=== PATIENT | male | born 1990 | race Two or more races ===

== ENCOUNTER 2020-08-09 10:13 | Emergency (ER) | payer SELFPAY | END 2020-08-09 10:23 | disposition left against medical advice (07) | LOC: ER 10:13 | DX: Z53.21 Procedure and treatment not carried out due to patient leaving prior to being seen by health care provider (principal) | CPT/HCPCS: 99281 ==

== ENCOUNTER 2020-11-11 07:33 | Emergency (ER) | payer BC ==
[~2020-11-11] VITALS: Ht 177.8 cm; Wt 118.8 kg
[2020-11-11] MEDS ORDERED: OMEP20ER PO (08:01)
[2020-11-11] MEDS ORDERED: BUSPIRONE HCL7.5 M2 PO (08:01)
[2020-11-11] MEDS ORDERED: METFORMIN HCL500 M3 PO (08:01)
[2020-11-11] MEDS ORDERED: GLIP5 PO (08:02)
[2020-11-11] MEDS ORDERED: LISI5 PO (08:02)
[2020-11-11] MEDS ORDERED: ZOFRAN4 MG PO (08:03)
[2020-11-11] MEDS ORDERED: ZOLOFT50 MG PO (08:03)
[2020-11-11 08:05] LABS: BASOPHILS ABSOLUTE AUTO 0.03 K/mm3 (0.00-0.23); BASOPHILS PERCENT AUTO 0 % (0-2); EOSINOPHILS ABSOLUTE AUTO 0.13 K/mm3 (0.00-0.68); EOSINOPHILS PERCENT AUTO 1 % (0-6); Hematocrit 43.3 % (37.0-53.0); Hemoglobin 14.1 g/dL (13.5-17.5); IMMATURE GRAN ABSOLUTE AUTO 0.03 K/mm3 (0.00-0.10); IMMATURE GRAN PERCENT AUTO 0 % (0-1); LYMPHOCYTES ABSOLUTE AUTO 2.03 K/mm3 (0.84-5.20); LYMPHOCYTES PERCENT AUTO 21 % (21-46); MONOCYTES ABSOLUTE AUTO 0.53 K/mm3 (0.16-1.47); MONOCYTES PERCENT AUTO 5 % (4-13); Mean Corpuscular HGB 28.3 pg (26.0-34.0); Mean Corpuscular HGB Conc 32.6 g/dL (31.5-36.5); Mean Corpuscular Volume 87 fL (80-100); Mean Platelet Volume 10.2 fL (9.1-12.4); NEUTROPHILS PERCENT AUTO 72 % (41-73); Platelet Count 296 K/mm3 (150-400); RDW Coefficient Variation 13.2 % (11.7-14.2); RDW Standard Deviation 42.1 fL (35.1-46.3); Red Blood Cell Count 4.98 M/mm3 (4.30-5.90); White Blood Cell Count 9.75 K/mm3 (4.00-11.30)
[2020-11-11 08:16] LABS: Alanine Aminotransfer (ALT/SGP 30 U/L (12-78); Albumin, Blood 3.6 g/dL (3.4-5.0); Albumin/Globulin Ratio 0.9 (0.8-1.8); Alk Phos 47 U/L (50-136); Anion Gap 4 mmol/L (6-16); Aspartate Aminotrans (AST/SGOT 15 U/L (12-37); Bilirubin, Total 0.1 mg/dL (0.1-1.0); Blood Urea Nitrogen 13 mg/dL (8-24); Bun/Creatinine Ratio 15.2 (12.0-20.0); CO2, Blood 27 mmol/L (21-32); Calcium, Blood 8.4 mg/dL (8.5-10.1); Chloride, Blood 105 mmol/L (98-108); Creatinine, Blood 0.85 mg/dL (0.60-1.20); Globulin, Blood 3.9 g/dL (2.2-4.0); Glomerular Filtration Rate >60 (60-); Glucose, Blood 157 mg/dL (70-99); Potassium, Blood 3.7 mmol/L (3.5-5.5); Sodium, Blood 136 mmol/L (136-145); Total Protein, Blood 7.5 g/dL (6.4-8.2)
[2020-11-11] MEDS ORDERED: SUCR1 PO (08:57)
[2020-11-11] MEDS ORDERED: PROM25 PO (08:57)
== END 2020-11-11 09:08 | disposition home or self-care (01) ==
LOC: ER 07:33
PROVIDERS: Emergency Medicine
DX: K27.9 Peptic ulcer, site unspecified, unspecified as acute or chronic, without hemorrhage or perforation (principal); E11.9 Type 2 diabetes mellitus without complications; Z79.84 Long term (current) use of oral hypoglycemic drugs; Z79.899 Other long term (current) drug therapy
CPT/HCPCS: 36415; 80053; 83690; 85025; 96374; 96375; 99284-25; C9113; J1170; J2405; J7120

== ENCOUNTER → 2021-01-30 | Outpatient (CLI) | payer BC ==
[~2021-01-30] MED LIST: BUSPIRONE HCL7.5 M2 PO; GLIP5 PO; LISI5 PO; METFORMIN HCL500 M3 PO; OMEP20ER PO; PROM25 PO; SUCR1 PO; ZOFRAN4 MG PO; ZOLOFT50 MG PO
== END ==
LOC: LAB SHORT 14:22 → LAB 14:22
DX: K21.9 Gastro-esophageal reflux disease without esophagitis (principal); R11.2 Nausea with vomiting, unspecified; R10.13 Epigastric pain
CPT/HCPCS: 87338

== ENCOUNTER 2022-05-20 15:58 | Inpatient (IN) | payer BC ==
[~2022-05-20] VITALS: Ht 177.8 cm; Wt 106.8 kg
[2022-05-20 16:59] LABS: BASOPHILS ABSOLUTE AUTO 0.04 K/mm3 (0.00-0.23); BASOPHILS PERCENT AUTO 0 % (0-2); EOSINOPHILS PERCENT AUTO 1 % (0-6); Hemoglobin 16.2 g/dL (13.5-17.5); IMMATURE GRAN PERCENT AUTO 1 % (0-1); LYMPHOCYTES ABSOLUTE AUTO 2.62 K/mm3 (0.84-5.20); LYMPHOCYTES PERCENT AUTO 17 % (21-46); MONOCYTES PERCENT AUTO 6 % (4-13); Mean Corpuscular HGB 27.9 pg (26.0-34.0); Mean Corpuscular HGB Conc 34.5 g/dL (31.5-36.5); Mean Corpuscular Volume 81 fL (80-100); Mean Platelet Volume 10.9 fL (9.1-12.4); NEUTROPHILS ABSOLUTE AUTO 11.84 K/mm3 (1.96-9.15); NEUTROPHILS PERCENT AUTO 75 % (41-73); Platelet Count 374 K/mm3 (150-400); RDW Coefficient Variation 12.2 % (11.7-14.2); RDW Standard Deviation 36.1 fL (35.1-46.3)
[2022-05-20 17:32] LABS: Albumin, Blood 3.7 g/dL (3.4-5.0); Albumin/Globulin Ratio 0.8 (0.8-1.8); Bilirubin, Total 0.5 mg/dL (0.1-1.0); Bun/Creatinine Ratio 19.3 (12.0-20.0); Creatinine, Blood 0.62 mg/dL (0.60-1.20); Globulin, Blood 4.9 g/dL (2.2-4.0); Total Protein, Blood 8.6 g/dL (6.4-8.2)
[2022-05-20] MEDS ORDERED: SERT100 PO (23:14)
--- NOTE | 2022-05-21 04:52 | NUR ---
SHIFT SUMMARY PT A&O X 4, PT ADMITTED AT BEGIN OF SHIFT- PT INDEPENDENT IN ROOM- FIANCE AT BED SIDE, IV R AC- NS @ 125ML/HR- PT HAS L BUTTOCKS ABSCESS- PT LAYS ON STOMACH- TELE MONITOR IN PLACE = SINUS AT 80S- MEDICATED WITH TRAMADOL FOR PAIN- IV ABX GIVEN T/O NIGHT
[2022-05-21 07:40] LABS: BASOPHILS ABSOLUTE AUTO 0.02 K/mm3 (0.00-0.23); BASOPHILS PERCENT AUTO 0 % (0-2); EOSINOPHILS ABSOLUTE AUTO 0.13 K/mm3 (0.00-0.68); EOSINOPHILS PERCENT AUTO 1 % (0-6); Hematocrit 40.7 % (37.0-53.0); Hemoglobin 13.7 g/dL (13.5-17.5); IMMATURE GRAN ABSOLUTE AUTO 0.07 K/mm3 (0.00-0.10); IMMATURE GRAN PERCENT AUTO 1 % (0-1); LYMPHOCYTES ABSOLUTE AUTO 1.98 K/mm3 (0.84-5.20); LYMPHOCYTES PERCENT AUTO 18 % (21-46); MONOCYTES ABSOLUTE AUTO 0.91 K/mm3 (0.16-1.47); MONOCYTES PERCENT AUTO 8 % (4-13); Mean Corpuscular HGB 28.1 pg (26.0-34.0); Mean Corpuscular HGB Conc 33.7 g/dL (31.5-36.5); Mean Corpuscular Volume 84 fL (80-100); Mean Platelet Volume 10.7 fL (9.1-12.4); NEUTROPHILS ABSOLUTE AUTO 7.92 K/mm3 (1.96-9.15); NEUTROPHILS PERCENT AUTO 72 % (41-73); Platelet Count 280 K/mm3 (150-400); RDW Coefficient Variation 12.6 % (11.7-14.2); RDW Standard Deviation 38.3 fL (35.1-46.3); Red Blood Cell Count 4.87 M/mm3 (4.30-5.90); White Blood Cell Count 11.03 K/mm3 (4.00-11.30)
[2022-05-21 07:49] LABS: Albumin, Blood 2.8 g/dL (3.4-5.0); Albumin/Globulin Ratio 0.7 (0.8-1.8); Bilirubin, Total 0.6 mg/dL (0.1-1.0); Bun/Creatinine Ratio 18.3 (12.0-20.0); Calcium, Blood 8.5 mg/dL (8.5-10.1); Creatinine, Blood 0.55 mg/dL (0.60-1.20); Globulin, Blood 3.9 g/dL (2.2-4.0); Total Protein, Blood 6.7 g/dL (6.4-8.2)
--- NOTE | 2022-05-21 16:37 | NUR ---
SHIFT SUMMARY PT HAS HAD C/O N/P THIS SHIFT, HE WAS MEDICATED PER THE EMAR. NO WOUND CONSULT THIS SHIFT BUT IT IS ORDERED. HIS GF HAS BEEN AT THE BS ALL DAY. HE HAS BEEN RESTING ON HIS STOMACH MOST OF THE DAY BUT HAS SHIFTED FROM SIDE TO SIDE AT TIMES. HE IS AOX4 AND CALLS WELL. WILL REPORT TO ONCOMING NURSE.
--- NOTE | 2022-05-21 22:55 | NUR ---
PHONE CALL TO HOSPITIALIST - PT C/O 04/02 PAIN- PT TOOK SHOWER AND CLEANED AREA OF ABSCESS AND IS IN TEARS- SEE ORDERS
--- NOTE | 2022-05-22 04:26 | NUR ---
SHIFT SUMMMARY PT A&O X 4- PT C/O INCREASED PAIN AFTER SHOWERING AND CLEANING ABSCESS AREA- NEW ORDER FOR FENTANYL - GAVE ZOFRAN AND FENTANYL FOR NAUSEA AND PAIN- PT TOLERATED WELL- IV INFUSING NS @ 125 R AC- PLAN IS FOR WOUND CARE TO TREAT- FIANCE AT BEDSIDE
--- NOTE | 2022-05-22 17:13 | NUR ---
SHIFT SUMMARY PT IN A LOT OF PAIN THIS SHIFT, ALSO C/O NAUSEA. INITIALLY, A SHIRA WAS SCHEDULED BY DR. FOWLER BUT IT WAS DECIDED THAT DR. ALEXANDRA AND SURGERY SHOULD CONSULT THE PATIENT WELL. HE WAS SEEN AND IT WAS DECIDED TO PERFORM THE PROCEDURE IN THE OR. HE IS LEAVING FOR HIS PROCEDURE AT 1715. HE HAS BEEN NPO TODAY DUE TO HIS LACK OF APPETITE. WILL REPORT TO ONCOMING NURSE.
--- NOTE | 2022-05-23 04:14 | NUR ---
SHIFT SUMMARY PATIENT IS ALERT AND ORIENTED. PATIENT ARRIVED BACK IN HIS ROOM RIGHT AFTER SHIFT CHANGE. RECOVERY NURSE AMADEO GAVE OR REPORT TO THIS RN. PATIENT HAD IND DONE OF AFFECTED AREA. ADDITIONAL ORDERS ARE IN PLACE FOR AFFECTED AREA TREATMENT. PATIENT HAS BEEN MEDICATED FOR PAIN. THIS RN OBTAINED MEDICATION FOR SLEEP WITH GOOD EFFECT. PATIENT HAS NOT COMPLAINED OF PAIN, NAUSEA, SOB OR VOMITTING THIS SHIFT. VITAL SIGNS REVIEWED. BED IN LOCKED AND LOWEST POSITION. CALL LIGHT IN PLACE. WILL MONITOR UNTIL SHIFT CHANGE.
--- NOTE | 2022-05-23 07:20 | NUR ---
05/23/22 0720 Marita Borja VERIFICATIONS: EDIT CHART.
[2022-05-23 10:51] LABS: BASOPHILS ABSOLUTE AUTO 0.02 K/mm3 (0.00-0.23); BASOPHILS PERCENT AUTO 0 % (0-2); EOSINOPHILS ABSOLUTE AUTO 0.05 K/mm3 (0.00-0.68); EOSINOPHILS PERCENT AUTO 1 % (0-6); Hematocrit 44.9 % (37.0-53.0); Hemoglobin 14.8 g/dL (13.5-17.5); IMMATURE GRAN ABSOLUTE AUTO 0.07 K/mm3 (0.00-0.10); IMMATURE GRAN PERCENT AUTO 1 % (0-1); LYMPHOCYTES ABSOLUTE AUTO 1.47 K/mm3 (0.84-5.20); LYMPHOCYTES PERCENT AUTO 14 % (21-46); MONOCYTES ABSOLUTE AUTO 0.55 K/mm3 (0.16-1.47); MONOCYTES PERCENT AUTO 5 % (4-13); Mean Corpuscular HGB 27.9 pg (26.0-34.0); Mean Corpuscular Volume 85 fL (80-100); Mean Platelet Volume 10.3 fL (9.1-12.4); NEUTROPHILS ABSOLUTE AUTO 8.22 K/mm3 (1.96-9.15); NEUTROPHILS PERCENT AUTO 79 % (41-73); Platelet Count 410 K/mm3 (150-400); RDW Coefficient Variation 12.4 % (11.7-14.2); RDW Standard Deviation 38.1 fL (35.1-46.3); Red Blood Cell Count 5.31 M/mm3 (4.30-5.90); White Blood Cell Count 10.38 K/mm3 (4.00-11.30)
[2022-05-23 10:58] LABS: Bicarbonate Venous 19.8 mmol/L (24.0-30.0); PCO2 Venous 38.6 mmHg (38-42); pH Blood Venous 7.32 (7.34-7.37)
[2022-05-23 11:12] LABS: Bun/Creatinine Ratio 14.3 (12.0-20.0); Calcium, Blood 8.8 mg/dL (8.5-10.1); Creatinine, Blood 0.63 mg/dL (0.60-1.20); Magnesium, Blood 1.7 mg/dL (1.6-2.4)
[2022-05-23 11:23] LABS: Influenza A, PCR NEGATIVE (NEGATIVE); Influenza B, PCR NEGATIVE (NEGATIVE); Resp Syncytial Virus, PCR NEGATIVE (NEGATIVE); SARS-Cov-2 (COVID-19) PCR, MMC NEGATIVE (NEGATIVE)
--- NOTE | 2022-05-23 20:27 | NUR ---
SHIFT SUMMARY- PT ALERT AND ORIENTED, INDEPEDENT IN THE ROOM. PT WAS VERY LETHARGIC AT THE START OF SHIFT, PULSE WAS A LITTLE ELVATED AND HE WAS HAVING A HACKING NONPRODUCTIVE COUGH, O2 SATS WERE 88% ON ROOM AIR AND THE PT WAS DECLINING HIS O2 BECAUSE HE "COULDN'T BREATHE WITH IT ON" SHORTLY AFTER THAT HE ALLOWED STAFF TO PLACE THE NC ON 2L. CALLED MD PT WAS HAVING AN INCREASE IN WORK OF BREATHING EVEN WITH THE O2 IN PLACE RESP RATE WAS 26. MD PLACED ORDERS FOR LABS AND CHEST XR. PT BREATHING SLOWED THE DAY PROGRESSED HOWEVER HE REMAINED LETHARGIC AND WAS DECLINING TO EAT ANYTHING AND NOT DRINKING PO FLUIDS. MD AWARE AND ORDERED LR AT 125 AND HOLD SHORT ACTING INSULIN FOR NOW. REPEAT LACTIC WAS 1.6. THIS EVENING AFTER THE LR WAS STARTED THE PT RESP RATE WAS DOWN TO 22, HE WAS MORE AWAKE AND ALERT AND WAS WANTING TO MOVE AROUND. HE AMBULATED TO THE BATHROOM SEVERAL TIMES AND THEN WALKED A DIOMEDE AROUND THE WHOLE UNIT. PT FIANCE IS AT THE BEDSIDE. HIS COLOR AND ENERGY LEVEL HAD IMPROVED AND THE PT REQUESTED A GRILLED CHICKEN SALAD, HE ATE ALL. PT IN BED, CALL LIGHT IN REACH NO S&S OF DISTRESS NOTED AT THE TIME OF BEDSIDE REPORT.
[2022-05-23 22:31] LABS: U Amphetamine Screen Not Detected; U Barbituate Screen Not Detected; U Benzodiazapine Screen Not Detected; U Buprenorphine Screen Not Detected; U Cannabinoids Screen DETECTED; U Cocaine Screen Not Detected; U Methadone Screen Not Detected; U Methamphetamine Screen Not Detected; U Opiates Screen Not Detected; U Oxycodone Screen Not Detected; U Phencyclidine Screen Not Detected; U Propoxyphene Screen Not Detected
--- NOTE | 2022-05-24 04:21 | NUR ---
SHIFT SUMMARY: PATIENT A&O X4, VS WNL ON RA, DENIES SOB/CHEST PAIN/N/V/D. MEDICATED PER EMAR. PATIENT INDEPENDENT IN BED AND REPOSITIONS SELF. USES CALL LIGHT APPROPRIATELY. [place]MEN [place] AT BEDSIDE. NO ADVERSE EVENTS THIS SHIFT. PLAN IS FOR D/C TODAY. BED LOW WITH CALL LIGHT IN REACH. WILL CONTINUE TO MONITOR AND REPORT TO DAY RN.
[2022-05-24 05:57] LABS: BASOPHILS ABSOLUTE AUTO 0.02 K/mm3 (0.00-0.23); BASOPHILS PERCENT AUTO 0 % (0-2); EOSINOPHILS ABSOLUTE AUTO 0.11 K/mm3 (0.00-0.68); EOSINOPHILS PERCENT AUTO 2 % (0-6); Hematocrit 38.5 % (37.0-53.0); Hemoglobin 12.8 g/dL (13.5-17.5); IMMATURE GRAN ABSOLUTE AUTO 0.04 K/mm3 (0.00-0.10); IMMATURE GRAN PERCENT AUTO 1 % (0-1); LYMPHOCYTES ABSOLUTE AUTO 2.09 K/mm3 (0.84-5.20); LYMPHOCYTES PERCENT AUTO 30 % (21-46); MONOCYTES ABSOLUTE AUTO 0.56 K/mm3 (0.16-1.47); MONOCYTES PERCENT AUTO 8 % (4-13); Mean Corpuscular HGB 28.2 pg (26.0-34.0); Mean Corpuscular HGB Conc 33.2 g/dL (31.5-36.5); Mean Corpuscular Volume 85 fL (80-100); Mean Platelet Volume 10.2 fL (9.1-12.4); NEUTROPHILS PERCENT AUTO 59 % (41-73); Platelet Count 385 K/mm3 (150-400); RDW Coefficient Variation 12.5 % (11.7-14.2); RDW Standard Deviation 38.4 fL (35.1-46.3); Red Blood Cell Count 4.54 M/mm3 (4.30-5.90); White Blood Cell Count 6.92 K/mm3 (4.00-11.30)
[2022-05-24 06:22] LABS: Bun/Creatinine Ratio 18.5 (12.0-20.0); Calcium, Blood 8.2 mg/dL (8.5-10.1); Creatinine, Blood 0.65 mg/dL (0.60-1.20); Potassium, Blood 3.8 mmol/L (3.5-5.5)
[2022-05-24] MEDS ORDERED: METR500 PO (11:56)
[2022-05-24] MEDS ORDERED: LEVFLO500 PO (11:57)
[2022-05-24] MEDS ORDERED: VISBIOME 112.51 EACH PO (11:58)
[2022-05-24] MEDS ORDERED: HUMULIN R100 UNIT/2 SC (11:59)
[2022-05-24] MEDS ORDERED: INSULIN GL100 UNIT/2 SC (12:00)
--- NOTE | 2022-05-24 14:55 | NUR ---
PT DISCHARGE DC INSRUCTIONS AND MEDICATIONS REVIEWED WITH PATIENT. PT VERB UNDERSTANDING OF MEDS, DC INSTRUCTIONS, FOLLOW UP, DIET, AND ACTIVITY.
== END 2022-05-24 14:55 | disposition home or self-care (01) | DRG 872 ==
LOC: ER 15:58 → MEDS 15:59
PROVIDERS: Family Medicine; Physician Assistant; Student in an Organized Health Care Education/Training Program; Surgery; ADMIT Family Medicine
PROC: 3E03329 Introduction of Other Anti-infective into Peripheral Vein, Percutaneous Approach (ICD-10-PCS; 2022-05-22)
PROC: 0J9B0ZZ Drainage of Perineum Subcutaneous Tissue and Fascia, Open Approach (ICD-10-PCS; principal; 2022-05-22 17:15)
DX: A40.1 Sepsis due to streptococcus, group B (principal); E87.20 Acidosis, unspecified; K61.1 Rectal abscess; K61.0 Anal abscess; F41.9 Anxiety disorder, unspecified; E11.9 Type 2 diabetes mellitus without complications; E66.9 Obesity, unspecified; I10 Essential (primary) hypertension; K21.9 Gastro-esophageal reflux disease without esophagitis; J10.1 Influenza due to other identified influenza virus with other respiratory manifestations; F12.10 Cannabis abuse, uncomplicated; Z20.822 Contact with and (suspected) exposure to COVID-19; Z79.899 Other long term (current) drug therapy; Z79.84 Long term (current) use of oral hypoglycemic drugs; Z79.811 Long term (current) use of aromatase inhibitors; Z68.34 Body mass index [BMI] 34.0-34.9, adult
CPT/HCPCS: 0241U; 36415; 71045; 72193; 80048; 80053; 82803; 82947; 83036; 83605; 83735; 85025; 87040; 87070; 87075; 87076; 87147; 87185; 87205; 90471; 90714; 93005; 93010; 94640; 94664; 94760; 94762; 96361; 96365-59; 96372; 96375; 96375-59; 96376; 99285-25; A9270; G0378; J0295; J0690; J0696; J1100; J1170; J1650; J1815; J2405; J2704; J3010; J7030; J7120; Q9967

== ENCOUNTER 2022-08-18 08:36 | Emergency (ER) | payer BC ==
[~2022-08-18] VITALS: Ht 177.8 cm; Wt 111.1 kg
[~2022-08-18 08:36] MED LIST changes: +HUMULIN R100 UNIT/2 SC; +INSULIN GL100 UNIT/2 SC; +LEVFLO500 PO; +METR500 PO; +SERT100 PO; +VISBIOME 112.51 EACH PO
[2022-08-18] MEDS ORDERED: MELATONIN5 M1 PO (09:08)
[2022-08-18] MEDS ORDERED: Zofran4 MG PO (10:22)
[2022-08-18] MEDS ORDERED: Naprosyn500 MG PO (10:23)
== END 2022-08-18 10:36 | disposition home or self-care (01) ==
LOC: ER 08:36
DX: S06.0X0A Concussion without loss of consciousness, initial encounter (principal); W01.0XXA Fall on same level from slipping, tripping and stumbling without subsequent striking against object, initial encounter; E11.9 Type 2 diabetes mellitus without complications; Z79.899 Other long term (current) drug therapy; Z79.4 Long term (current) use of insulin
CPT/HCPCS: 70450; A9270

== ENCOUNTER 2023-07-29 21:32 | Emergency (ER) | payer BC ==
[~2023-07-29] VITALS: Ht 180.3 cm; Wt 124.7 kg
[~2023-07-29 21:32] MED LIST changes: +MELATONIN5 M1 PO; +Naprosyn500 MG PO; +Zofran4 MG PO
[2023-07-29] MEDS ORDERED: NS 1,000 ML IV SCH ×3 (21:45→23:15)
[2023-07-29] MEDS ORDERED: HYDROmorphone HCl/Pf 1MG SYR IV ONE ×2 (21:55→23:05)
[2023-07-29 22:14] LABS: BASOPHILS ABSOLUTE AUTO 0.06 K/mm3 (0.00-0.23); BASOPHILS PERCENT AUTO 0 % (0-2); EOSINOPHILS ABSOLUTE AUTO 0.18 K/mm3 (0.00-0.68); EOSINOPHILS PERCENT AUTO 1 % (0-6); Hematocrit 39.8 % (37.0-53.0); Hemoglobin 13.4 g/dL (13.5-17.5); IMMATURE GRAN ABSOLUTE AUTO 0.12 K/mm3 (0.00-0.10); IMMATURE GRAN PERCENT AUTO 1 % (0-1); LYMPHOCYTES PERCENT AUTO 11 % (21-46); MONOCYTES ABSOLUTE AUTO 1.38 K/mm3 (0.16-1.47); MONOCYTES PERCENT AUTO 6 % (4-13); Mean Corpuscular HGB 28.5 pg (26.0-34.0); Mean Corpuscular HGB Conc 33.7 g/dL (31.5-36.5); Mean Corpuscular Volume 85 fL (80-100); NEUTROPHILS ABSOLUTE AUTO 17.91 K/mm3 (1.96-9.15); NEUTROPHILS PERCENT AUTO 81 % (41-73); Platelet Count 401 K/mm3 (150-400); RDW Coefficient Variation 12.8 % (11.7-14.2); RDW Standard Deviation 39.2 fL (35.1-46.3); White Blood Cell Count 22.05 K/mm3 (4.00-11.30)
[2023-07-29] MEDS ORDERED: Piperacillin/Tazobactam Sod 4.5 GM in NS 100 ML IV ONE (22:25)
[2023-07-29 22:37] LABS: Albumin, Blood 3.4 g/dL (3.4-5.0); Albumin/Globulin Ratio 0.7 (0.8-1.8); Bilirubin, Total 0.5 mg/dL (0.1-1.0); Bun/Creatinine Ratio 17.4 (12.0-20.0); Calcium, Blood 8.9 mg/dL (8.5-10.1); Creatinine, Blood 0.81 mg/dL (0.60-1.20); Globulin, Blood 4.9 g/dL (2.2-4.0); Potassium, Blood 3.7 mmol/L (3.5-5.5); Total Protein, Blood 8.3 g/dL (6.4-8.2)
[2023-07-29] MEDS ORDERED: Vancomycin HCL 2,500 MG in NS 250 ML IV ONE (22:50)
[2023-07-29] MEDS ORDERED: Budeprion Xl300 MG PO (23:39)
[2023-07-29] MEDS ORDERED: OZEMPIC0.25 MG/02 UD (23:40)
[2023-07-29] MEDS ORDERED: HUMULIN R100 UNIT/2 UD (23:41)
[2023-07-29] MEDS ORDERED: OMEP20ER (23:42)
[2023-07-30] MEDS ORDERED: HYDROmorphone HCl/Pf 1MG SYR IV ONE ×2 (01:10→05:25)
[2023-07-30 03:22] VITALS: BP 112/66
[2023-07-30] MEDS ORDERED: HYDROmorphone HCl/Pf 1MG SYR ONE (03:39)
== END 2023-07-30 05:36 | disposition short-term general hospital (02) ==
LOC: ER 21:32
PROVIDERS: Student in an Organized Health Care Education/Training Program
DX: A41.9 Sepsis, unspecified organism (principal); L03.315 Cellulitis of perineum; E87.20 Acidosis, unspecified; R65.20 Severe sepsis without septic shock; E86.0 Dehydration; E11.9 Type 2 diabetes mellitus without complications; I10 Essential (primary) hypertension; Z79.4 Long term (current) use of insulin; Z79.899 Other long term (current) drug therapy
CPT/HCPCS: 36415; 74177; 80053; 83605; 85025; 86141; 87040; 93005; 93010; 96365-59; 96366; 96367; 96375; 96376; 99285-25; J1170; J2543; J3370; J7030; J7050; Q9967

== ENCOUNTER 2023-08-04 00:38 | Emergency (ER) | payer BC ==
[~2023-08-04] VITALS: Ht 182.9 cm; Wt 117.9 kg
[~2023-08-04 00:38] MED LIST changes: +Budeprion Xl300 MG PO; +HUMULIN R100 UNIT/2 UD; +OMEP20ER; +OZEMPIC0.25 MG/02 UD
[2023-08-04 00:58] LABS: Base Excess Venous -0.8 mmol/L; Bicarbonate Venous 24.6 mmol/L (24.0-30.0); PCO2 Venous 27.9 mmHg (38-42); pH Blood Venous 7.51 (7.34-7.37)
[2023-08-04 01:00] LABS: BASOPHILS ABSOLUTE AUTO 0.08 K/mm3 (0.00-0.23); BASOPHILS PERCENT AUTO 0 % (0-2); EOSINOPHILS ABSOLUTE AUTO 0.29 K/mm3 (0.00-0.68); EOSINOPHILS PERCENT AUTO 2 % (0-6); Hematocrit 39.1 % (37.0-53.0); IMMATURE GRAN ABSOLUTE AUTO 0.19 K/mm3 (0.00-0.10); IMMATURE GRAN PERCENT AUTO 1 % (0-1); LYMPHOCYTES ABSOLUTE AUTO 3.64 K/mm3 (0.84-5.20); LYMPHOCYTES PERCENT AUTO 20 % (21-46); MONOCYTES ABSOLUTE AUTO 0.85 K/mm3 (0.16-1.47); MONOCYTES PERCENT AUTO 5 % (4-13); Mean Corpuscular HGB 28.1 pg (26.0-34.0); Mean Corpuscular HGB Conc 33.2 g/dL (31.5-36.5); Mean Corpuscular Volume 84 fL (80-100); Mean Platelet Volume 9.5 fL (9.1-12.4); NEUTROPHILS PERCENT AUTO 72 % (41-73); Platelet Count 463 K/mm3 (150-400); RDW Coefficient Variation 12.6 % (11.7-14.2); RDW Standard Deviation 38.3 fL (35.1-46.3); Red Blood Cell Count 4.63 M/mm3 (4.30-5.90); White Blood Cell Count 17.95 K/mm3 (4.00-11.30)
[2023-08-04 01:20] LABS: Calcium, Ionized (POC) 1.12 mmol/L (1.10-1.46); Chloride (POC) 104 mmol/L (98-108); Glucose (ISTAT POC) 148 mg/dL (70-99); Hemoglobin (POC) 13.9 g/dL (13.5-17.5); Potassium (POC) 3.4 mmol/L (3.5-5.5); Sodium (POC) 140 mmol/L (135-148); Total CO2 (POC) 21 mmol/L (21-32)
[2023-08-04] MEDS ORDERED: Ondansetron HCl 2 MG / ML 2ML Vial IV ONE (01:20)
[2023-08-04 01:21] LABS: Alanine Aminotransfer (ALT/SGP 29 U/L (12-78); Albumin, Blood 3.5 g/dL (3.4-5.0); Albumin/Globulin Ratio 0.8 (0.8-1.8); Alk Phos 73 U/L (50-136); Anion Gap 6 mmol/L (6-16); Aspartate Aminotrans (AST/SGOT 20 U/L (12-37); Bilirubin, Total 0.2 mg/dL (0.1-1.0); Blood Urea Nitrogen 22 mg/dL (8-24); Bun/Creatinine Ratio 22.6 (12.0-20.0); CO2, Blood 23 mmol/L (21-32); Chloride, Blood 109 mmol/L (98-108); Creatinine, Blood 0.97 mg/dL (0.60-1.20); Ethanol (Alcohol), Blood, Med <3 mg/dL; Globulin, Blood 4.5 g/dL (2.2-4.0); Glomerular Filtration Rate 107 (60-); Glucose, Blood 145 mg/dL (70-99); Magnesium, Blood 1.6 mg/dL (1.6-2.4); Potassium, Blood 3.4 mmol/L (3.5-5.5); Salicylate <1.7 mg/dL (2.8-20.0); Sodium, Blood 138 mmol/L (136-145)
[2023-08-04] MEDS ORDERED: Ketorolac Tromethamine 30mg Vial IV ONE (01:55)
[2023-08-04] MEDS ORDERED: Droperidol 5 mg/2 ml Vial IV ONE (01:55)
[2023-08-04 02:07] LABS: Influenza A, PCR NEGATIVE (NEGATIVE); Influenza B, PCR NEGATIVE (NEGATIVE); Resp Syncytial Virus, PCR NEGATIVE (NEGATIVE); SARS-Cov-2 (COVID-19) PCR, MMC NEGATIVE (NEGATIVE)
[2023-08-04 02:30] VITALS: BP 114/91
== END 2023-08-04 04:05 | disposition left against medical advice (07) ==
LOC: ER 00:38
PROVIDERS: Student in an Organized Health Care Education/Training Program
DX: E87.3 Alkalosis (principal); I10 Essential (primary) hypertension; E11.9 Type 2 diabetes mellitus without complications; Z79.4 Long term (current) use of insulin; Z79.899 Other long term (current) drug therapy
CPT/HCPCS: 0241U; 36415; 71045; 80047; 80053; 82803; 82947; 83690; 83735; 83880; 84484; 85014; 85025; 93005; 93010; 96374; 96375; 99285-25; G0480; J1790; J1885; J2405

== ENCOUNTER 2024-05-27 07:28 | Day surgery (SDC) | payer BC ==
[~2024-05-27] VITALS: Ht 173 cm; Wt 124.6 kg
[2024-05-27] VITALS (11 sets, daily range): BP systolic 119–146; BP diastolic 68–94
[~2024-05-27 07:28] MED LIST changes: +BASAGLAR K100 UNIT/1 SC
[2024-05-27] MEDS ORDERED: Lactated Ringer's 1,000 ML IV SCH (07:30)
[2024-05-27] MEDS ORDERED: FentaNYL Citrate 50 MCG/ML 5 ML Injection ONE (07:44)
[2024-05-27] MEDS ORDERED: propofoL 20 ML IV ONE (07:44)
[2024-05-27] MEDS ORDERED: Ketorolac Tromethamine 30mg Vial ONE (07:44)
[2024-05-27] MEDS ORDERED: Dexamethasone Sod Phos 10 MG/ML 1ML VIAL ONE (07:44)
[2024-05-27] MEDS ORDERED: Ondansetron HCl 2 MG / ML 2ML Vial ONE (07:44)
[2024-05-27] MEDS ORDERED: Rocuronium Bromide 10 MG/ML 5ML Injection IV ONE (07:44)
[2024-05-27] MEDS ORDERED: Sugammadex Sodium 200 MG/2ML SDV (100 MG/ML) ONE (07:44)
--- NOTE | 2024-05-27 08:29 | NUR ---
History, Chart, Medications and Allergies reviewed before start of procedure. Patient up to Ambulate independently. Gait steady. Pre-Op teaching done. Pt verbalizes understanding. Patient confirms NPO status and agrees with scheduled surgery. Patient States Post-Procedure ride home has been arranged.
[2024-05-27] MEDS ORDERED: Bupivacaine 0.5% HCl 5 MG/ML 30MLVIAL ONE (08:38)
[2024-05-27] MEDS ORDERED: HYDROcodone 5-APAP 325 TAB PO PRN (09:50)
--- NOTE | 2024-05-27 10:16 | NUR ---
PT TO DAY SURGERY STEP DOWN FROM PACU WITH ANAL FISTULOSTOMY; BEDSIDE REPORT RECEIVED. PT IS AWAKE, ALERT AND ORIENTED; ABLE TO MOVE SELF IN BED. PT HAS GEL IN RECTUM WITH GUAZE ON TOP AND WEARING MESH UNDERWEAR-GUAZE IS C/D/I. PT DENIES PAIN AT THIS TIME. DRINKING WATER.
--- NOTE | 2024-05-27 10:38 | NUR ---
Discharge instructions reviewed with patient. Patient verbalizes understanding. Copy given to patient to take home. Patient States Post-Procedure ride home has been arranged. Pt states he has a sitz bath at home and knows how to use it.
--- NOTE | 2024-05-27 10:45 | NUR ---
Patient up to Ambulate independently. Gait steady. Discharged via wheelchair to private car for ride home.
== END 2024-05-27 10:47 | disposition home or self-care (01) ==
LOC: ORSCMMR 07:28 → ORD 09:00 → ORSCMMR 10:47
PROVIDERS: Surgery
PROC: 0DBQXZZ Excision of Anus, External Approach (ICD-10-PCS; principal; 2024-05-27 09:00)
DX: K60.30 Anal fistula, unspecified (principal); I10 Essential (primary) hypertension; E11.9 Type 2 diabetes mellitus without complications; K21.9 Gastro-esophageal reflux disease without esophagitis; E66.01 Morbid (severe) obesity due to excess calories; Z68.41 Body mass index [BMI] 40.0-44.9, adult; Z79.899 Other long term (current) drug therapy
CPT/HCPCS: 82947; J1100; J1885; J2405; J2704; J3010; J7120

== ENCOUNTER 2025-03-21 14:13 | Observation (INO) | payer BC ==
[~2025-03-21] VITALS: Ht 177.8 cm; Wt 117.8 kg
[~2025-03-21 14:13] MED LIST changes: +BUPROPION XL150 M1 PO; -Budeprion Xl300 MG PO; +HYDROCODONE-AC1 EA10 PO; +METPRE4DP PO; -OMEP20ER
[2025-03-21 14:47] LABS: BASOPHILS ABSOLUTE AUTO 0.06 K/mm3 (0.00-0.23); BASOPHILS PERCENT AUTO 0 % (0-2); EOSINOPHILS ABSOLUTE AUTO 0.16 K/mm3 (0.00-0.68); EOSINOPHILS PERCENT AUTO 1 % (0-6); Hematocrit 44.4 % (37.0-53.0); Hemoglobin 15.4 g/dL (13.5-17.5); IMMATURE GRAN ABSOLUTE AUTO 0.08 K/mm3 (0.00-0.10); IMMATURE GRAN PERCENT AUTO 1 % (0-1); LYMPHOCYTES ABSOLUTE AUTO 2.29 K/mm3 (0.84-5.20); LYMPHOCYTES PERCENT AUTO 17 % (21-46); MONOCYTES ABSOLUTE AUTO 0.54 K/mm3 (0.16-1.47); MONOCYTES PERCENT AUTO 4 % (4-13); Mean Corpuscular HGB Conc 34.7 g/dL (31.5-36.5); Mean Corpuscular Volume 82 fL (80-100); NEUTROPHILS ABSOLUTE AUTO 10.23 K/mm3 (1.96-9.15); NEUTROPHILS PERCENT AUTO 77 % (41-73); NRBC ABSOLUTE 0.00 K/mm3 (0.00-0.02); NRBC Auto 0.0 /100 WBC (0.0-0.2); RDW Coefficient Variation 13.4 % (11.7-14.2); RDW Standard Deviation 39.4 fL (35.1-46.3)
[2025-03-21] MEDS ORDERED: ONDA4ODT MM (14:47)
[2025-03-21] MEDS ORDERED: TRAZ50 PO (14:47)
[2025-03-21] MEDS ORDERED: MINOCYCLINE HC100 M2 PO (14:47)
[2025-03-21 15:03] LABS: Platelet Count 304 K/mm3 (150-400)
[2025-03-21 15:09] LABS: Alanine Aminotransfer (ALT/SGP 37.0 U/L (12-78); Albumin, Blood 3.8 g/dL (3.4-5.0); Albumin/Globulin Ratio 0.9 (0.8-1.8); Anion Gap 8.0 mmol/L (3-11); Aspartate Aminotrans (AST/SGOT 17.0 U/L (12-37); Bilirubin, Total 0.3 mg/dL (0.1-1.0); Blood Urea Nitrogen 12.0 mg/dL (8-24); CO2, Blood 26.0 mmol/L (21-32); Calcium, Blood 9.2 mg/dL (8.5-10.1); Chloride, Blood 105.0 mmol/L (98-108); Creatinine, Blood 0.7 mg/dL (0.60-1.20); Globulin, Blood 4.1 g/dL (2.2-4.0); Glucose, Blood 196.0 mg/dL (70-99); Potassium, Blood 4.3 mmol/L (3.5-5.5); Sodium, Blood 135.0 mmol/L (136-145); Total Protein, Blood 7.9 g/dL (6.4-8.2)
[2025-03-21] MEDS ORDERED: Ketorolac Tromethamine 15mg Vial IV ONE (15:35)
[2025-03-21] MEDS ORDERED: FentaNYL Citrate 50 MCG/ML 2 ML Injection IV ONE (15:35)
[2025-03-21] MEDS ORDERED: Ondansetron 4 MG SoluTab SL ONE (16:40)
[2025-03-21 17:20] LABS: Source, Urine Clean Catch
[2025-03-21 17:39] LABS: Bilirubin, Urine Neg (Neg); Color, Urine Yellow (P-Yellow); Glucose Qualitative, Urine Neg (Neg); Ketones, Urine Neg (Neg); Leukocyte Esterase, Urine Neg (Neg); Protein, Urine 1+ (Neg); Specific Gravity, Urine 1.010 (1.003-1.022); Urobilinogen, Urine NORM (Normal)
[2025-03-21] MEDS ORDERED: HYDROmorphone HCl/Pf 1MG SYR IV ONE (18:05)
[2025-03-21] MEDS ORDERED: Ondansetron HCl 2 MG / ML 2ML Vial IV PRN (19:05)
[2025-03-21] MEDS ORDERED: NS 1,000 ML IV SCH (19:10)
[2025-03-21] MEDS ORDERED: HYDROmorphone HCl/Pf 1MG SYR IV PRN (19:10)
[2025-03-21] MEDS ORDERED: FLU VACC TS2025-26(6MOS UP)/PF 45 MCG/0.5 ML SYRINGE IM SCH (19:10)
[2025-03-21] MEDS ORDERED: Insulin Glargine 100 Unit/ML 3 ML SYR SC SCH (21:00)
[2025-03-21] MEDS ORDERED: Ampicillin Sod/Sulbactam Sod 3 GM in NS 100 ML IV SCH (21:00)
[2025-03-21 21:08] VITALS: BP 152/95
[2025-03-21] MEDS ORDERED: BUSPIRONE HCL7.5 M1 PO (21:27)
[2025-03-22] VITALS (20 sets, daily range): BP systolic 132–186; BP diastolic 69–122
[2025-03-22] MEDS ORDERED: Insulin Human Lispro 100 Units/ML 3ML Syringe SC SCH
[2025-03-22 05:29] LABS: BASOPHILS ABSOLUTE AUTO 0.03 K/mm3 (0.00-0.23); BASOPHILS PERCENT AUTO 0 % (0-2); EOSINOPHILS ABSOLUTE AUTO 0.14 K/mm3 (0.00-0.68); EOSINOPHILS PERCENT AUTO 2 % (0-6); Hematocrit 40.6 % (37.0-53.0); Hemoglobin 13.6 g/dL (13.5-17.5); IMMATURE GRAN ABSOLUTE AUTO 0.03 K/mm3 (0.00-0.10); IMMATURE GRAN PERCENT AUTO 0 % (0-1); LYMPHOCYTES ABSOLUTE AUTO 2.59 K/mm3 (0.84-5.20); LYMPHOCYTES PERCENT AUTO 28 % (21-46); MONOCYTES ABSOLUTE AUTO 0.70 K/mm3 (0.16-1.47); MONOCYTES PERCENT AUTO 8 % (4-13); Mean Corpuscular HGB Conc 33.5 g/dL (31.5-36.5); NEUTROPHILS ABSOLUTE AUTO 5.77 K/mm3 (1.96-9.15); NEUTROPHILS PERCENT AUTO 62 % (41-73); NRBC ABSOLUTE 0.00 K/mm3 (0.00-0.02); NRBC Auto 0.0 /100 WBC (0.0-0.2); Platelet Count 268 K/mm3 (150-400); RDW Coefficient Variation 13.7 % (11.7-14.2); RDW Standard Deviation 43.3 fL (35.1-46.3)
[2025-03-22 05:38] LABS: Mean Corpuscular Volume 87 fL (80-100)
[2025-03-22 05:41] LABS: Prothrombin Time Results 11.4 Sec (9.7-11.5)
[2025-03-22 05:55] LABS: Anion Gap 4.0 mmol/L (3-11); Blood Urea Nitrogen 12.0 mg/dL (8-24); CO2, Blood 31.0 mmol/L (21-32); Calcium, Blood 8.8 mg/dL (8.5-10.1); Chloride, Blood 105.0 mmol/L (98-108); Creatinine, Blood 0.83 mg/dL (0.60-1.20); Glucose, Blood 143.0 mg/dL (70-99); Potassium, Blood 4.2 mmol/L (3.5-5.5); Sodium, Blood 136.0 mmol/L (136-145)
--- NOTE | 2025-03-22 07:33 | NUR ---
SUMMARY PT ADMITTED TO RM 213 PER YUSEF FROM ER FOR ABD PAIN.PT TRANSFERRED SELF TO BED.VOIDING, REQUIRING DILAUDID FOR PAIN CONTROL.CONT PULSE OX IN USE.MAINTAINING SATS ABOVE 90.PT REMAINS NPO PENDING SURG CX.
[2025-03-22] MEDS ORDERED: Pantoprazole Sodium 40 MG Injection IV SCH (09:00)
--- NOTE | 2025-03-22 12:52 | NUR ---
ASSUMPTION NOTE: PATIENT IS ALERT AND ORIENTED X4 & COOPERATIVE WITH HIS CARE, IS AT BEDISDE. PATIENT REPORTED 9/10 PAIN AND WAS GIVEN PAIN MEDICATIONS ABOUT 30 MINUTES AGO FROM PRIOR RN. PATIENT JUST CHANGED INTO HOSPITAL GOWN AND WAS TAKEN DOWN TO DAY SURGERY. FLUIDS WERE STOPPED FOR THE TIME BEING AND FAMILY AWARE OF PATIENTS DEPARTURE TO DAY SURGERY.
[2025-03-22] MEDS ORDERED: Bupivacaine 0.5% HCl 5 MG/ML 30MLVIAL ONE (13:28)
[2025-03-22] MEDS ORDERED: Metoclopramide HCl 5MG / ML 2ML Vial ONE (13:41)
[2025-03-22] MEDS ORDERED: Dexamethasone Sod Phos 10 MG/ML 1ML VIAL ONE (13:50)
[2025-03-22] MEDS ORDERED: SuccINYLCHOLINE Chloride 100 MG/5 ML 5MLSYR ONE (13:50)
[2025-03-22] MEDS ORDERED: Rocuronium Bromide 10 MG/ML 5ML Injection IV ONE (13:50)
[2025-03-22] MEDS ORDERED: FentaNYL Citrate 50 MCG/ML 2 ML Injection ONE ×2 (13:53→16:16)
[2025-03-22] MEDS ORDERED: Midazolam HCl 1MG / ML 2ML Vial ONE (13:54)
[2025-03-22] MEDS ORDERED: ePHEDrine Sulfate 50 MG/ML 1ML Injection ONE (13:58)
[2025-03-22] MEDS ORDERED: Metoclopramide HCl 5MG / ML 2ML Vial IV ONE (14:20)
[2025-03-22] MEDS ORDERED: HYDROmorphone HCl/Pf 1MG SYR ONE ×2 (14:31→16:08)
[2025-03-22] MEDS ORDERED: Sugammadex Sodium 200 MG/2ML SDV (100 MG/ML) ONE (14:39)
[2025-03-22] MEDS ORDERED: Ketorolac Tromethamine 30mg Vial ONE (14:40)
[2025-03-22] MEDS ORDERED: HydrALAZINE HCl 20 MG / ML 1ML Vial IV PRN (14:50)
[2025-03-22] MEDS ORDERED: HYDROmorphone HCl/Pf 1MG SYR IV PRN ×2 (14:50)
[2025-03-22] MEDS ORDERED: Albuterol 2.5 MG/3 ML VIAL INH PRN (14:50)
[2025-03-22] MEDS ORDERED: FentaNYL Citrate 50 MCG/ML 2 ML Injection IV PRN ×2 (14:50→14:55)
[2025-03-22] MEDS ORDERED: HydrALAZINE HCl 20 MG / ML 1ML Vial ONE (15:57)
--- NOTE | 2025-03-22 16:40 | NUR ---
RETURN FROM SURGERY: PATIENT RERTURNS TO ROOM FROM SURGERY IS SLEEPY BUT EASILY AROUSABLE. BLOOD SUGAR TAKEN AND ELEVATED,THIS RN TO ADMINISTER INSULIN PER SLIDING SCALE. PATIENT HAS CALL LIGHT WITHIN REACH, VITALS CYCLING.
--- NOTE | 2025-03-22 17:41 | NUR ---
shift summary: patient is alert and oriented x4 & cooperative with his care,is able to make needs known & is post op day 1 from a lap choly. Satting >92% on room air. Has 4 lap sites across the abdomen that are glued shut. Patient family at bedside. patient reports pain a 4/10 and blood sugar was checked upon arrival, is to get insulin q6 per orders. patient is able to eat and has a consistent carb diet. was called but did not answer. patient was medicated with po pain pills for 9/10 abdominal pain and took small sips of water,did not feel up to eating after returning. patient has call light within reach, bed in lowest locked position & stating nothing else is needed at this time.
--- NOTE | 2025-03-22 20:23 | NUR ---
ASSUMED CARE OF THIS PATIENT AT APPROX 1900 PT IS A&OX4 ABLE TO MAKE NEEDS KNOWN. SPOUSE AND SMALL CHILD AT BEDSIDE. VSS, BP ELAVATED EARLIER IN THE DAY BUT TRENDING DOWN W/ BETTER PAIN CONTROL. PT STATES PAIN IS 6/10 AT THIS TIME. SATTING 95% ON CONTINUS PULSE OX. LAPSITES FREE OF DISCHARGE OR SWELLING. BOWEL TONES PRESENT. NO BM YET. BED IN LOW, CALL LIGHT IN REACH.
[2025-03-23 00:10] VITALS: BP 137/82
[2025-03-23 03:28] VITALS: BP 155/96
[2025-03-23 05:09] LABS: BASOPHILS ABSOLUTE AUTO 0.03 K/mm3 (0.00-0.23); BASOPHILS PERCENT AUTO 0 % (0-2); EOSINOPHILS ABSOLUTE AUTO 0.01 K/mm3 (0.00-0.68); EOSINOPHILS PERCENT AUTO 0 % (0-6); Hematocrit 40.6 % (37.0-53.0); Hemoglobin 13.6 g/dL (13.5-17.5); IMMATURE GRAN ABSOLUTE AUTO 0.05 K/mm3 (0.00-0.10); IMMATURE GRAN PERCENT AUTO 0 % (0-1); LYMPHOCYTES ABSOLUTE AUTO 1.42 K/mm3 (0.84-5.20); LYMPHOCYTES PERCENT AUTO 9 % (21-46); MONOCYTES ABSOLUTE AUTO 0.81 K/mm3 (0.16-1.47); MONOCYTES PERCENT AUTO 5 % (4-13); Mean Corpuscular HGB Conc 33.5 g/dL (31.5-36.5); Mean Corpuscular Volume 84 fL (80-100); NEUTROPHILS ABSOLUTE AUTO 13.59 K/mm3 (1.96-9.15); NEUTROPHILS PERCENT AUTO 85 % (41-73); NRBC ABSOLUTE 0.00 K/mm3 (0.00-0.02); NRBC Auto 0.0 /100 WBC (0.0-0.2); Platelet Count 288 K/mm3 (150-400); RDW Coefficient Variation 13.4 % (11.7-14.2); RDW Standard Deviation 41.8 fL (35.1-46.3)
--- NOTE | 2025-03-23 05:30 | NUR ---
NOC SHIFT SUMMARY PT REMAINS A&OX4 ABLE TO MAKE NEEDS KNOWN. PT IS SBA FOR LINE MANAGMENT TO THE BATHROOM. PT HAS BEEN PASSING GAS AND HAD A BM LAST NIGHT. VOIDING IN URINAL W/OUT DIFFICULTY. MEDICATED PER EMAR FOR PAIN T/O THE SHIFT. PT CURRENTLY RESTING ON HIS BACK. BED IN LOW, CALL LIGHT IN REACH.
[2025-03-23 05:38] LABS: Anion Gap 8.0 mmol/L (3-11); Blood Urea Nitrogen 13.0 mg/dL (8-24); CO2, Blood 26.0 mmol/L (21-32); Calcium, Blood 8.9 mg/dL (8.5-10.1); Chloride, Blood 102.0 mmol/L (98-108); Creatinine, Blood 0.73 mg/dL (0.60-1.20); Glucose, Blood 173.0 mg/dL (70-99); Potassium, Blood 4.4 mmol/L (3.5-5.5); Sodium, Blood 132.0 mmol/L (136-145)
[2025-03-23 07:18] VITALS: BP 134/78
[2025-03-23] MEDS ORDERED: Insulin Human Lispro 100 Units/ML 3ML Syringe SC SCH (07:30)
[2025-03-23 11:43] VITALS: BP 137/83
[2025-03-23 14:37] VITALS: BP 138/81
[2025-03-23] MEDS ORDERED: ACET325 PO (16:05)
[2025-03-23] MEDS ORDERED: DOCU100 PO (16:05)
[2025-03-23] MEDS ORDERED: OXYC5 PO (16:06)
--- NOTE | 2025-03-23 17:31 | NUR ---
shift summary PATIENT AOX4 ABLE TO MAKE NEEDS KNOWN DENIES CP OR SOB. IS INDEP TO RESTROOM TOLERATING HIS MEALS. HE HAD A BM AND IS PASSING GAS. SX SITES ARE CDI NO REDNESS OR EDEMA. DISCHARGE INSTRUCTIONS INFORMED AND UNDERSTOOD WITH AT BEDSIDE.
== END 2025-03-23 16:49 | disposition home or self-care (01) ==
LOC: ER 14:13 → SURS 14:14
PROVIDERS: Nurse Practitioner Acute Care; Student in an Organized Health Care Education/Training Program; ADMIT Internal Medicine
DX: K80.12 Calculus of gallbladder with acute and chronic cholecystitis without obstruction (principal); K82.8 Other specified diseases of gallbladder; E11.9 Type 2 diabetes mellitus without complications; K21.9 Gastro-esophageal reflux disease without esophagitis; I10 Essential (primary) hypertension; G47.33 Obstructive sleep apnea (adult) (pediatric); K76.0 Fatty (change of) liver, not elsewhere classified; F41.8 Other specified anxiety disorders; E66.01 Morbid (severe) obesity due to excess calories; Z68.30 Body mass index [BMI] 30.0-30.9, adult; Z79.4 Long term (current) use of insulin; Z79.899 Other long term (current) drug therapy
CPT/HCPCS: 36415; 74177; 80048; 80053; 82947; 85025; 85610; 87086; 88304; 96361; 96365; 96366; 96374-59; 96375; 96376; 99285-25; A9270; G0378; J0295; J0330; J0360; J1100; J1171; J1815; J1885; J2250; J2405; J2470; J2704; J2765; J3010; J7030; J7120; Q9967